=== PATIENT | female | born 1975 | race Caucasian/White ===

== ENCOUNTER → 2020-02-04 12:28 | Outpatient (CLI) | payer BC, SELFPAY | PROVIDERS: PCP Family Medicine; Visit Provider Family Medicine | DX: R00.2 Palpitations (principal) | CPT/HCPCS: 93225; 93226 ==

== ENCOUNTER → 2020-11-20 09:59 | Outpatient (CLI) | payer OTHER, SELFPAY ==
--- NOTE | 2020-11-20 10:02 | CT_ITS ---
PROCEDURE: CT ANGIO HEAD CLINICAL INDICATION: ACUTE NONINTRACTABLE HEADACHE, UNSPECIFIED HEADACHE TYPE COMPARISON: No exams were available for comparison TECHNIQUE: IV Contrast: 100ML Isovue [address] brain followed by CT angiography of the head with multiplanar, MIP, and 3D reformations. All measurements of carotid stenosis are performed according to NASCET criteria. Dose modulation, automated exposure control, and/or iterative reconstruction were used for dose reduction. FINDINGS: Anterior Circulation: Both supraclinoid ICAs bifurcate into normal anterior and middle cerebral arteries without any significant stenosis, aneurysm, or other abnormality. Anterior additional: Unremarkable appearing ophthalmic arteries Posterior circulation: The vertebrals and basilar artery have an unremarkable appearance. There is persistent origin of the right posterior cerebral artery as a normal variant. Posterior additional: The intracranial portion of the carotid arteries have an unremarkable appearance. Venous: The major intracranial venous structures enhance normally. No midline shift or mass effect. No enhancing lesions. IMPRESSION: No acute intracranial process. Dictated by: Satya Santiago MD 11/20/2020 11:32 Satya Santiago MD in [place] 11/20/2020 11:32
== END ==
PROVIDERS: PCP Family Medicine; Visit Provider Physician Assistant
DX: R51.9 Headache, unspecified (principal)
CPT/HCPCS: 70496; Q9967

== ENCOUNTER → 2020-12-09 12:42 | Outpatient (CLI) | payer OTHER, SELFPAY ==
--- NOTE | 2020-12-09 12:59 | ECG_ITS ---
APPROVED REPORT Exam: Resting ECG HR:89 bpm ECG Measurements Heart Rate 89 AXES WA 130 P 38 QRSd 80 QRS 28 QT 370 T 11 QTc 450 Conclusion Normal sinus rhythm Possible Left atrial enlargement Borderline ECG Electronically signed by : Hector Toure MD 12/09/2020 20:10:41
== END ==
PROVIDERS: PCP Family Medicine; Visit Provider Family Medicine
DX: R00.2 Palpitations (principal)
CPT/HCPCS: 93005; 93225; 93226

== ENCOUNTER → 2020-12-11 12:51 | Outpatient (CLI) | payer OTHER, SELFPAY ==
--- NOTE | 2020-12-11 | CA_ITS ---
APPROVED REPORT EXAM: Comprehensive 2D, Doppler, and color-flow Echocardiogram Flamer After Lasting: Pamela Linder CRT Ht: 5 ft 0 in Wt: 160lbs BSA: 1.70 BP: 138/78 mmHg Indications: Palpitations 2D Dimensions LVOT 1.79 cm (M/F) 1.5-2.5 LA Volume 19.40 mL LA Volume Index 11.40 mL/m2 (M/F) 16-34 M-Mode Dimensions RVDd 2.50 cm (0.9-2.6) LA Diam 3.10 cm (1.9-4.0) LVDd 4.59 cm (3.5-5.7) Ao Diam 2.94 cm (2.0-3.7) LVDs 2.94 cm (3.5-5.7) IVSd 0.91 cm (0.6-1.1) PWd 0.44 cm (0.6-1.1) EF (Teich) 65.60% FS 35.90% EDV (Teich) 96.80 mL TAPSE 1.98 (<1.7) ESV (Teich) 33.30 mL LV Diastology E Decel Time 153.00 (160-240 msec) E/A Ratio 0.84 MED E' 9.80 (< 7 cm/sec) MED A' 12.10 cm/s E'/MED E' Ratio 8.95 (>14) LAT E' 10.60 (<10 cm/sec) LAT A' 12.70 cm/s E/LAT E' Ratio 8.27 (>14) Aortic Valve AO Peak GR. 7.00 mmHg Mitral Valve MV E Max Braydon. 88.00 (40-130 cm/s) MV A Velocity 104.00 (40-130 cm/s) E/A Ratio 0.84 MV Decel. Time 153.00 (160-240 ms) MV PHT 45.00 ms Pulmonary Valve PV Peak Velocity 113.00 (50-150 cm/s) Tricuspid Valve TR P. Velocity 167.00 cm/s RAP Estimate 10.00 mmHg RVSP 21.20 mmHg Left Ventricle Left atrium normal size, left ventricle is normal size, there is no concentric left ventricular hypertrophy, visually estimated ejection fraction 55% with no regional wall motion abnormality, diastolic parameters are within normal range. Right Ventricle Right atrium and right ventricle are normal size and contractility. Aortic Valve Aortic valve is grossly normal. There is no aortic stenosis or aortic insufficiency. Mitral Valve Mitral valve grossly normal, there is trace mitral regurgitation. Tricuspid Valve Tricuspid valve grossly normal, there is trace tricuspid regurgitation, tricuspid regurgitation jet velocity is inadequate for calculation of the right ventricular systolic pressure. Pulmonic Valve Pulmonic valve is poorly visualized. Great Vessels Aortic root is normal size. Pericardium No significant pericardial effusion noted. Conclusion 1. Normal left ventricular size, preserved left ventricular systolic function, visually estimated ejection fraction 55% with no regional wall motion abnormality, diastolic parameters are within normal range. 2. Trace mitral and tricuspid regurgitation. 3. No significant pericardial effusion noted. Electronically signed by : Valente Bustos MD 12/11/2020 16:40:22
== END ==
PROVIDERS: PCP Family Medicine; Visit Provider Family Medicine
DX: R00.2 Palpitations (principal)
CPT/HCPCS: 93306

== ENCOUNTER → 2020-12-16 08:27 | Outpatient (CLI) | payer SELFPAY ==
--- NOTE | 2020-12-16 08:27 | CT_ITS ---
PROCEDURE: CT HEART W CALCIUM SCORE CLINICAL HISTORY: screening COMPARISON: CT ABDPELW CT ABD PELVIS W/ CONTRAST from 05/27/2016 TECHNIQUE: Axial images obtained with sagittal and coronal reformats. All CT scans at the facility use one or more dose reduction, viz: automated exposure control, ma/kV adjustment per patient size (including targeted exams where dose is matched to indication, i.e. head), or iterative reconstruction technique. FINDINGS: Coronary artery calcium score is 0 indicating very low cardiovascular disease risk. There are numerous faint bilateral small ground-glass opacities. There is a solid-appearing nodule in the left lower lobe at 5 mm. There are no previous chest CTs available for comparison to determine if these are old or new. Dedicated chest CT with contrast suggested for further evaluation. IMPRESSION: No identifiable calcific atherosclerotic plaque with very low cardiovascular disease risk Numerous small ground-glass opacities bilaterally and a 5 mm solid opacity in the left lower lobe. Suggest dedicated chest CT with contrast for further evaluation Dictated by: Satya Santiago MD 12/16/2020 09:28 Satya Santiago MD in [facility] 12/16/2020 09:28
== END ==
PROVIDERS: PCP Family Medicine; Visit Provider Internal Medicine Cardiovascular Disease
DX: Z13.6 Encounter for screening for cardiovascular disorders (principal)
CPT/HCPCS: 75571

== ENCOUNTER → 2021-01-20 14:05 | Outpatient (CLI) | payer OTHER, SELFPAY ==
--- NOTE | 2021-01-20 14:05 | CT_ITS ---
PROCEDURE: CT CHEST W CON CLINCAL INDICATION: lung nodules COMPARISON: CT CT HEART W CALCIUM SCORE from 12/16/2020 TECHNIQUE: IV Contrast: 75ml Isovue 370 Axial images obtained with sagittal and coronal reformats. All CT scans at the facility use one or more dose reduction, viz: automated exposure control, ma/kV adjustment per patient size (including targeted exams where dose is matched to indication, i.e. head), or iterative reconstruction technique. FINDINGS: ADDITIONAL FINDINGS: Airways are clear. There is a ground-glass opacity at the right lung apex. There is a bandlike opacity in the posterior segment right upper lobe which extends to the pleura, which could represent subsegmental atelectasis or pleural tethering of a lesion. There are numerous ground-glass opacities throughout the right upper lobe. There is a ground-glass opacity in the right lower lobe. There is a 2.4 centimeter lesion abutting the pleura in the left upper lobe. There are numerous ground-glass opacities in the left upper lobe. There are numerous ground-glass opacities in the left lower lobe there is a solid nodule in the superior segment left lower lobe measuring 4 millimeters. There is no pleural fluid. There is no mediastinal adenopathy. There is no axillary adenopathy. Visualized abdominal contents appear unremarkable except for diverticulosis of the colon.. IMPRESSION: 1. Numerous ground-glass (subsolid) opacities throughout all lobes of both lungs. 2. Pulmonary lesion measuring 2.4 cm abutting the pleura in the apicoposterior segment left upper lobe. Fleischner society guidelines (2017) recommend considering CT at 3 months, PET-CT, or tissue sampling. 3. Bandlike opacity in posterior segment right upper lobe extending to pleura, which could represent subsegmental atelectasis or pleural tethering of a lesion. Dictated by: Deanna Currie MD 01/21/2021 15:50 Deanna Currie MD in [place] 01/21/2021 15:50
== END ==
PROVIDERS: PCP Family Medicine; Visit Provider Nurse Practitioner Family
DX: R91.8 Other nonspecific abnormal finding of lung field (principal)
CPT/HCPCS: 71260; Q9967

== ENCOUNTER → 2021-02-01 13:28 | Outpatient (CLI) | payer OTHER, SELFPAY ==
[2021-02-01 15:10] LABS: Coronavirus 19, PCR Not Detected (NotDetected); Influenza A, PCR Not Detected (NotDetected); Influenza B, PCR Not Detected (NotDetected)
== END ==
PROVIDERS: PCP Family Medicine; Visit Provider Family Medicine
DX: Z20.822 Contact with and (suspected) exposure to COVID-19 (principal)
CPT/HCPCS: C9803; U0003; U0005

== ENCOUNTER → 2021-02-04 16:51 | Outpatient (CLI) | payer OTHER, SELFPAY | PROVIDERS: PCP Physician Assistant; Visit Provider Physician Assistant | DX: Z20.822 Contact with and (suspected) exposure to COVID-19 (principal) | CPT/HCPCS: C9803; U0003; U0005 ==

== ENCOUNTER → 2021-04-05 13:04 | Outpatient (CLI) | payer OTHER, SELFPAY ==
[2021-04-05 13:28] LABS: Influenza A, PCR Not Detected (NotDetected); Influenza B, PCR Not Detected (NotDetected)
[2021-04-05 13:55] LABS: Coronavirus 19, PCR Detected (NotDetected)
== END ==
PROVIDERS: PCP Family Medicine; Visit Provider Family Medicine
DX: U07.1 COVID-19 (principal)
CPT/HCPCS: C9803; U0003; U0005

== ENCOUNTER → 2022-03-09 07:59 | Outpatient (CLI) | payer OTHER, SELFPAY ==
[2022-03-10 15:10] LABS: H. pylori Breath Test Negative (Negative)
== END ==
LOC: LAB 07:59
PROVIDERS: PCP Family Medicine; Visit Provider Family Medicine
DX: R12 Heartburn (principal); K21.9 Gastro-esophageal reflux disease without esophagitis
CPT/HCPCS: 83013

== ENCOUNTER → 2022-03-15 07:54 | Outpatient (CLI) | payer OTHER, SELFPAY ==
[2022-03-15] VITALS (8 sets, daily range): BP systolic 93–145; BP diastolic 61–90; PULSE 133–137; RESP 20–22; TEMP 36.6; O2SAT 92–95; BMI 27.9
--- NOTE | 2022-03-15 08:03 | XR_ITS ---
FINAL REPORT CLINICAL HISTORY: SOB and dry cough for 2 weeks, pt states she vapes No surg FINDINGS: Two views of the chest were obtained. The heart size and pulmonary vascularity are within normal limits. The mediastinum is normal. There is total opacification of the left thorax with a probable large pleural effusion. The right lung is clear. There is no pneumothorax. The bony thorax is intact. IMPRESSION: Total opacification of the left thorax with a probable large pleural effusion. Reviewed, Interpreted and Dictated by Daquan Olivera III, MD Transcribed by Prerna Marrufo Authenticated and [facility]
--- NOTE | 2022-03-15 08:43 | CT_ITS ---
FINAL REPORT CLINICAL HISTORY: LUNG NODULE. abnormal cxr. soa cough COMPARISON: December 2020 FINDINGS: Axial images were obtained from the lung apex to the mid abdomen by computed tomography after the administration of IV contrast. Coronal reformatted images were obtained. This study was performed with techniques to keep radiation doses as low as reasonably achievable, (ALARA). Individualized dose reduction techniques using automated exposure control or adjustment of mA and/or kV according to the patient's size were employed. There is no axillary adenopathy. There is mediastinal and hilar adenopathy. A right subcarinal lymph node measures 2.5 cm. Heart size is normal. There is complete collapse of the left lung. There are heterogeneous areas within the left lung. There is a suspected left hilar/perihilar mass. There is a large left pleural effusion that fills the entire left thorax. There are areas of left pleural thickening worrisome for pleural neoplasm. There is a moderate pericardial effusion. A small right pleural effusion is present. There are several less than 5 mm nonspecific right pulmonary nodules. Images through the abdomen show numerous masses throughout the liver consistent with widespread hepatic metastatic disease. Hepatic masses measure up to approximate 1.5 cm. There are several borderline enlarged upper abdominal lymph nodes. There are multiple low-attenuation masses throughout the bony thorax consistent with bony metastatic disease. IMPRESSION: Left hilar/perihilar mass with large left pleural effusion and areas of left pleural thickening worrisome for pleural neoplasm. Widespread hepatic and bony metastatic disease. Mediastinal, hilar and upper abdominal adenopathy. The patient's physician was notified of these findings by Dr. Olivera at 9:20 a.m. on March 15, 2022. Reviewed, Interpreted and Dictated by Daquan Olivera III, MD Transcribed by Manoj Madison Authenticated and [facility]
--- NOTE | 2022-03-15 09:39 | CT_ITS ---
FINAL REPORT TECHNIQUE: Postcontrast axial images through the abdomen and pelvis were performed. This study was performed with techniques to keep radiation doses as low as reasonably achievable, (ALARA). Individualized dose reduction techniques using automated exposure control or adjustment of mA and/or kV according to the patient's size were employed. CLINICAL HISTORY: ABN CT CHEST, POSS LIVER METS COMPARISON: May 2016 FINDINGS: Abdomen: The gallbladder is present. Numerous hepatic masses are better seen on the recent chest CT. The spleen is unremarkable. The adrenals are normal. The pancreas is unremarkable. The kidneys enhance appropriately. The aorta is normal in caliber. No free fluid or adenopathy is identified. There are scattered colonic diverticula. There are borderline enlarged upper abdominal lymph nodes. Pelvis: The appendix is normal. The urinary bladder is unremarkable. There is enlarged uterus favoring fibroids. There are small presumed ovarian cysts. There is a moderate amount of retained stool. There are multiple lytic areas in the spine and pelvis consistent with bony metastatic disease. There is a sclerotic focus in the medial right iliac bone favoring a bone island. IMPRESSION: Multiple lytic areas in the spine and pelvis consistent with bony metastatic disease. Hepatic masses are better seen on the recent chest CT. Enlarged uterus favors a fibroid uterus. Reviewed, Interpreted and Dictated by Daquan Olivera III, MD Transcribed by Manoj Madison Authenticated and [facility]
--- NOTE | 2022-03-15 11:15 | US_ITS ---
FINAL REPORT CLINICAL HISTORY: SOB, LT lung mass, Collasped lung [address] Cuevas FINDINGS: ULTRASOUND-GUIDED THORACENTESIS HISTORY: Pleural effusion. TECHNIQUE: Ultrasound guidance was provided for clinical service and performance of a thoracentesis. 1.6 L of fluid was removed by the clinical service. IMPRESSION: Ultrasound guidance for thoracentesis. Films reviewed , interpreted and dictated by Dr. Olivera Transcribed by Jhonatan Gamez PA-C. Reviewed, Interpreted and Dictated by Daquan Olivera III, MD Transcribed by SAMMY Richard Authenticated and [facility]
[2022-03-15 11:54] LABS: POC Glucose,Bedside 144 (70-110)
--- NOTE | 2022-03-15 12:24 | XR_ITS ---
FINAL REPORT CLINICAL HISTORY: POST THORACENTESIS COMPARISON: Earlier same day FINDINGS: A single view of the chest was obtained. The heart is normal in size. The mediastinum is unremarkable. There is a moderate, partially improved left pleural effusion. Left lung opacities persist. There is no pneumothorax. IMPRESSION: Partial improvement in left pleural effusion with no pneumothorax post thoracentesis. Reviewed, Interpreted and Dictated by Daquan Olivera III, MD Transcribed by Lyndsay Osorio Authenticated and . [facility]
--- NOTE | 2022-03-15 12:40 | PC.NURSE ---
Pt arrived to post-op for 1 hour observation after thoracentiesis. Bandaid L mid-back showing faint shadow of drainage in center. No C/O pain. No SOA. Saturation 92%. Frequent dry cough noted. Lung sounds diminished on L side, expiratory wheezes RUL. Skin P/W/D at this time. Spouse at bedside offering appropriate support. Pt calm and cooperative.
--- NOTE | 2022-03-15 12:54 | PC.NURSE ---
Pt continues to be stable without pain or SOA. Eating lunch without difficulty. Radiology at bedside around 1235 for port CXR.
--- NOTE | 2022-03-15 13:13 | PC.NURSE ---
RT at bedside to administer duoneb.
--- NOTE | 2022-03-15 13:15 | HMH.PROCNOTE ---
[facility] Procedure Note Date: 03/15/22 Time: 12:35 Procedure Note:: Procedure: Left Thoracentesis Indication for procedure: Pleural Effusion, Hypoxic Respiratory failure A time out was performed, and the CT chest was reviewed, the appropriate side was confirmed and marked. My hands were washed immediately prior to the procedure. I wore a surgical cap, mask with protective eyewear, sterile gown, and sterile gloves throughout the procedure. The patient was prepped and draped in a sterile manner using chlorhexidine scrub after the appropriate level was percussed and confirmed by ultrasound. 1% lidocaine was used to anesthetize the skin, ?subcutaneous tissue, superior aspect of the rib periosteum and parietal pleura.? A finder needle was then introduced at the seventh intercoastal space posteriorly?to locate the pleural fluid; blood-tinged fluid was aspirated. A 10-blade scalpel was used to cristi the skin at the insertion site. The Aaln-w-Ixfwsega needle was then introduced through the skin incision into the pleural space using negative aspiration pressure and the red colorimetric indicator to confirm appropriate positioning of the needle. The thoracentesis catheter was then threaded without difficulty.? 1620 ml of blood tinged-colored?fluid was removed without difficulty. The catheter was then removed. No immediate complications were noted during the procedure. A post-procedure chest X-ray is pending at the time of this note. The fluid will be sent for routine pleural studies, cultures along with cytopathology.? Patient tolerated the procedure well? Estimated blood loss is 5cc.
--- NOTE | 2022-03-15 13:28 | PC.NURSE ---
Pt denies pain or SOA. Lasix 40 mg po given per order. MD wanted to see pt in office before leaving [facility]. W/C pt to [facility]. VSS. Dr. Em aware of all VS.
--- NOTE | 2022-03-15 13:30 | PC.NURSE ---
Education to pt and S.O. to return to ER for SOA and/severe pain in chest, bleeding from punture site. S/S infection discussed. Verbalized understanding of all.
[2022-03-15 13:36] LABS: Appearance,Body Fld. Cloudy; RBC,Body Fluid 16 cells/uL (< 10 X 10^3); Source, Body Fld. Thoracentesis Fluid; TNC,Body Fluid 1775 cells/uL (< 1000); Volume,Body Fld. 1620 mL
--- NOTE | 2022-03-15 13:43 | PC.NURSE ---
Discussed with pt and S.O. to return to ER if develop bleeding at puncture site, severe pain and/or SOA. S/S infection reviewed. Verbalized understanding of all info.
[2022-03-15 14:08] LABS: Mononuclear WBCs,Body Fluid 93 %; Polynuclear WBC,Body Fluid 7 %
[2022-03-16 12:22] LABS: Albumin, Body Fluid 3.2 g/dL (Not Estab.); Glucose, Body Fluid 159 mg/dL (.); LD, Body Fluid 153 IU/L (.); Protein, Body Fluid 4.6 g/dL (.)
== END ==
PROVIDERS: Internal Medicine Pulmonary Disease; PCP Family Medicine; Visit Provider Family Medicine
DX: R06.02 Shortness of breath (principal); C78.7 Secondary malignant neoplasm of liver and intrahepatic bile duct; R91.1 Solitary pulmonary nodule
CPT/HCPCS: 32555; 71045; 71046; 71260; 74177; 82042; 82945; 82962; 83615; 83986; 84155; 87070; 87205; 89051; Q9967

== ENCOUNTER → 2022-03-18 16:51 | Outpatient (CLI) | payer OTHER, SELFPAY ==
--- NOTE | 2022-03-18 16:53 | MR_ITS ---
PROCEDURE INFORMATION: Exam: MR Head Without and With Contrast Exam date and time: 03/18/2022 5:19 PM Age: 46 years old Clinical indication: Condition or disease; Metastatic or secondary malignancy of brain; Patient HX: Dx with lung cancer Tuesday03/15/22, checking for mets in the brain , PT has mild headaches and blurred vision . ; additional info: Widespread metastatic malignant neoplastic dis. TECHNIQUE: Imaging protocol: Magnetic resonance imaging of the head without and with contrast. Contrast material: PROHANCE; Contrast volume: 14 ml; Contrast route: IV; COMPARISON: CT ANGIO HEAD 11/20/2020 10:28 AM FINDINGS: Brain: There are innumerable enhancing, intra-axial lesions. No acute territorial infarct or parenchymal hemorrhage. Cerebral ventricles: The ventricles, sulci and cisterns are normal in size and configuration. No hydrocephalus or midline structure shift Pituitary gland and sella: Orbits, sellar/parasellar structures and cervicomedullary junction are unremarkable. Bones/joints: Unremarkable. Paranasal sinuses: Normal as visualized. No acute sinusitis. Mastoid air cells: Normal as visualized. No mastoid effusion. Orbital cavities: Unremarkable. Vasculature: Flow voids of the major vascular structures are intact. Soft tissues: Unremarkable. IMPRESSION: Innumerable intra-axial metastasis in this patient with history of lung cancer.
== END ==
LOC: RAD 16:51
PROVIDERS: PCP Family Medicine; Visit Provider Family Medicine
DX: C34.92 Malignant neoplasm of unspecified part of left bronchus or lung (principal); C80.0 Disseminated malignant neoplasm, unspecified
CPT/HCPCS: 70553; A9576

== ENCOUNTER 2022-03-24 16:48 | Inpatient (IN) | payer OTHER, SELFPAY ==
[2022-03-24] VITALS (19 sets, daily range): BP systolic 107–148; BP diastolic 67–99; PULSE 90–120; RESP 16–22; TEMP 36.1–37.1; O2SAT 90–98; BMI 23.4
--- NOTE | 2022-03-24 10:21 | XR_ITS ---
FINAL REPORT CLINICAL HISTORY: F/U PLEURAL EFFUSION COMPARISON: March 15, 2022 FINDINGS: Two views of the chest were obtained. The heart size and pulmonary vascularity are within normal limits. The mediastinum is normal. There is a large left pleural effusion, worse. There are mild right base pulmonary opacities, favor atelectasis over pneumonia. There is no pneumothorax. The bony thorax is intact. IMPRESSION: Worsening large left pleural effusion. Mild right lung base opacities, favor atelectasis over pneumonia. Reviewed, Interpreted and Dictated by Daquan Olivera III, MD Transcribed by Prerna Marrufo Authenticated and . [facility]
--- NOTE | 2022-03-24 12:03 | US_ITS ---
FINAL REPORT CLINICAL HISTORY: malignant effusion, DR ALVAREZ, 2390ML FINDINGS: ULTRASOUND-GUIDED THORACENTESIS HISTORY: Pleural effusion. TECHNIQUE: Ultrasound guidance was provided by clinical service and performance of a thoracentesis. IMPRESSION: Ultrasound guidance for thoracentesis performed by clinical service. Films reviewed , interpreted and dictated by Dr. Olivera Transcribed by Jhonatan Gamez PA-C. Reviewed, Interpreted and Dictated by Daquan Olivera III, MD Transcribed by SAMMY Richard Authenticated and [facility]
--- NOTE | 2022-03-24 13:24 | XR_ITS ---
FINAL REPORT CLINICAL HISTORY: .POST LT THORACENTESIS PER DR ALVAREZ COMPARISON: 03/24/2022 FINDINGS: SINGLE-VIEW CHEST The heart size is normal. The mediastinum is normal. There is marked improvement in the left pleural effusion. There is a moderate left pneumothorax with up to 20 mm of pleural separation. IMPRESSION: Moderate left pneumothorax. Ordering physician's office was notified of findings on 03/24/2022 at 1:54 p.m. Reviewed, Interpreted and Dictated by Daquan Olivera III, MD Transcribed by Janey Cuba Authenticated and [facility]
--- NOTE | 2022-03-24 14:11 | PC.NURSE ---
dr. umana at bedside talking to patient
--- NOTE | 2022-03-24 14:58 | PC.NURSE ---
patient sitting in chair, expresses no need. family at bedside. pt is aware of care plan.
--- NOTE | 2022-03-24 16:19 | XR_ITS ---
FINAL REPORT CLINICAL HISTORY: chest tube placement COMPARISON: Earlier the same day FINDINGS: A single portable view of the chest was obtained. A new left chest tube is present. There is cardiomegaly. The mediastinum is within normal limits. There is a moderate left pneumothorax which is larger with approximately 27 mm of pleural separation. There is a small left pleural effusion. The bony thorax is intact. IMPRESSION: New left chest tube is present. Moderate but larger left pneumothorax with approximately 27 mm of pleural separation. Small left pleural effusion. Reviewed, Interpreted and Dictated by Daquan Olivera III, MD Transcribed by Prerna Marrufo Authenticated and . [facility]
--- NOTE | 2022-03-24 16:20 | EXP.SURG.CON ---
History of Present Illness *Admission Date: 03/24/22 *Reason for visit:: effusion / ptx *History of present illness: 46yo F with malignant left pleural effusion. PTX noted after thoracentesis earlier today. [facility] Disclaimer: The information contained in this section may have been updated after the patient was seen, as this information can be updated by other users. Medical History (Updated 03/24/22 @ 17:15 by Ashley Deutsch, RN) Abnormal electrocardiography Anxiety Anxiety and depression Blurry vision, bilateral Bone metastases Bone metastases Brain metastases Chronic cough Chronic cough Depression Diabetes Diabetes mellitus, type 2 Family history of heart disease GERD (gastroesophageal reflux disease) Hilar lymphadenopathy History of COVID-19 History of COVID-19 History of diverticulitis History of diverticulitis History of gastroesophageal reflux (GERD) Hyperlipidemia Liver metastases Lung cancer Malignant pleural effusion Mediastinal lymphadenopathy Migraine Palpitations Pleural effusion Primary adenocarcinoma of lung Sinus tachycardia SOB (shortness of breath) Surgical History History of thoracentesis No significant past surgical history Family History Mother Lung cancer Other Diabetes Social History (Updated 03/24/22 @ 17:17 by Ashley Deutsch, RN) Smoking Status: Former smoker alcohol intake: never substance use type: denies use current occupational status: employed Travel in the last 8 weeks: None Meds Home Medications and Allergies Home Medications Medication Instructions Recorded Confirmed Type empagliflozin 10 mg tablet 10 mg PO DAILY Diabetes 03/15/22 03/24/22 History (Jardiance) dexamethasone 4 mg tablet 2 mg PO BID steroid 03/24/22 03/24/22 History New Prescriptions to Start Prescriptions: Allergies Allergy/AdvReac Type Severity Reaction Status Date / Time No Known Allergies Allergy Verified 03/15/22 13:58 Exam (Inpt) Vital signs and Labs for Last 24 Hours: Temp Pulse Resp BP Pulse Ox 98.8 F 109 H 17 126/86 97 03/24/22 20:00 03/24/22 20:00 03/24/22 20:00 03/24/22 20:00 03/24/22 20:00 Laboratory Results - last 24 hr 03/24/22 17:26: SARS-CoV-2 (PCR) Not detected, Influenza A Untype (PCR) Not detected, Influenza Type B (PCR) Not detected I & O for Labs for Last 24 Hours: Intake & Output 03/22/22 03/23/22 03/24/22 03/25/22 11:59 11:59 11:59 11:59 Intake Total 240 / 240 Output Total 500 / 500 Balance -260 / -260 Weight 120 lb Constitutional: no acute distress Respiratory: Absent respiratory distress Results Labs Labs: Laboratory Results - last 24 hr 03/24/22 17:26: SARS-CoV-2 (PCR) Not detected, Influenza A Untype (PCR) Not detected, Influenza Type B (PCR) Not detected Imaging Chest x-ray: image reviewed Assessment and Plan *Assessment and plan (1) Pneumothorax on left: Status: Acute Category: Medical Code(s): J93.9 - Pneumothorax, unspecified Plan: left chest tube I have discussed the risks and benefits including, but not limited to: Bleeding Infection Damage to surrounding tissue Inherent risks of sedation The patient agrees to proceed.
--- NOTE | 2022-03-24 16:27 | PC.NURSE ---
consent for left chest tube placement signed by patient, dr. jones, and nurse. time out called at 1551 with staff at bedside. pt tolerated procedure well. procedure ended at 1617. nicky vernon put in chest xray order per dr jones.
--- NOTE | 2022-03-24 16:58 | EXP.ACUTE.PN ---
Subjective *Date: 03/24/22 *Time: 16:58 Interval history: Patient had pneumothorax after thoracentesis today, due to malignant, symptomatic pleural effusion. Chest tube placed by Dr. Christianson. Medical Exam Vital signs and Labs for Last 24 Hours: Vital Signs Temp Pulse Resp BP Pulse Ox 03/24/22 15:15 107 H 21 118/90 95 03/24/22 15:00 109 H 19 114/87 96 03/24/22 14:30 109 H 20 116/88 96 03/24/22 14:15 109 H 20 122/81 96 03/24/22 14:05 111 H 21 120/84 95 03/24/22 13:50 110 H 17 148/70 H 96 03/24/22 13:35 111 H 20 131/74 95 03/24/22 13:20 112 H 20 120/92 H 93 L 03/24/22 13:05 97.0 F L 107 H 20 124/95 H 91 L 03/24/22 11:41 98.3 F 90 22 125/88 90 L Intake and Output 03/24/22 03/24/22 03/24/22 07:59 15:59 23:59 Other: Weight 120 lb Patient Weight 03/24/22 23:59 Weight 120 lb I & O for Labs for Last 24 Hours: Intake & Output 03/21/22 03/22/22 03/23/22 03/24/22 23:59 23:59 23:59 23:59 Weight 120 lb Constitutional: Present no acute distress Comment:: uncomfortable due to pain, left sided chest tube in place. Assessment and Plan *Assessment and plan (1) Pneumothorax on left: Status: Acute Category: Medical Code(s): J93.9 - Pneumothorax, unspecified (2) Malignant pleural effusion: Status: Acute Category: Medical Code(s): J91.0 - Malignant pleural effusion (3) Primary adenocarcinoma of lung: Status: Acute Category: Medical Code(s): C34.90 - Malignant neoplasm of unspecified part of unspecified bronchus or lung (4) Brain metastases: Status: Acute Category: Medical Code(s): C79.31 - Secondary malignant neoplasm of brain (5) Bone metastases: Status: Acute Category: Medical Code(s): C79.51 - Secondary malignant neoplasm of bone (6) Chronic cough: Status: Acute Category: Medical Code(s): R05.3 - Chronic cough (7) Liver metastases: Status: Acute Category: Medical Code(s): C78.7 - Secondary malignant neoplasm of liver and intrahepatic bile duct (8) Mediastinal lymphadenopathy: Status: Acute Category: Medical Code(s): R59.0 - Localized enlarged lymph nodes Plan Patient admitted for further management of left sided pneumothorax.
--- NOTE | 2022-03-24 17:06 | EXP.PULM.CON ---
History of Present Illness History of present illness: Ms. Schroeder is a 46-year-old female no significant smoking history recently diagnosed with stage IV adenocarcinoma lung presented to the hospital for outpatient thoracentesis procedure experience iatrogenicpneumothorax status post surgical chest tube placement and was admitted for further management [facility] Disclaimer: The information contained in this section may have been updated after the patient was seen, as this information can be updated by other users. Medical History (Updated 03/24/22 @ 17:15 by Ashley Deutsch RN) Abnormal electrocardiography Anxiety Anxiety and depression Blurry vision, bilateral Bone metastases Bone metastases Brain metastases Chronic cough Chronic cough Depression Diabetes Diabetes mellitus, type 2 Family history of heart disease GERD (gastroesophageal reflux disease) Hilar lymphadenopathy History of COVID-19 History of COVID-19 History of diverticulitis History of diverticulitis History of gastroesophageal reflux (GERD) Hyperlipidemia Liver metastases Lung cancer Malignant pleural effusion Mediastinal lymphadenopathy Migraine Palpitations Pleural effusion Primary adenocarcinoma of lung Sinus tachycardia SOB (shortness of breath) Surgical History (Updated 03/15/22 @ 13:51 by Chey Irene) History of thoracentesis No significant past surgical history Family History Mother Lung cancer Other Diabetes Social History Smoking Status: Former smoker alcohol intake: never substance use type: denies use current occupational status: employed Travel in the last 8 weeks: None Review of Systems Constitutional Constitutional: Denies anorexia, Denies body ache(s) and Reports fatigue Eyes Eyes: Denies eye discharge, Denies dry eyes, Denies irritation and Denies itchy eyes ENT Ears, Nose, Mouth, and Throat: Denies epistaxis, Denies facial pain, Denies lip swelling and Denies throat swelling *Cardiovascular Cardiovascular: Denies dyspnea and Denies dyspnea on exertion *Respiratory Respiratory: Reports chest congestion, Reports cough, Denies dyspnea, Denies dyspnea on exertion, Denies excessive phlegm production and Denies wheezing *Gastrointestinal Gastrointestinal: Denies abdominal pain, Denies belching and Denies cramping *Musculoskeletal Musculoskeletal: Reports back pain, Denies myalgias and Reports other (No small joint swelling or Pain) Psychiatric Psychiatric: Denies homicidal ideation and Denies suicidal ideation Endocrine Endocrine: Reports fatigue and Denies heat intolerance Hematologic/Lymphatic Hematologic/Lymphatic: Denies easy bleeding and Denies lymphadenopathy Allergic/Immunologic Allergic/Immunologic: Denies itchy eyes, Denies lip swelling, Denies throat swelling and Denies wheezing Pulmonology Exam Inpatient Vital signs and Labs for Last 24 Hours: Temp Pulse Resp BP Pulse Ox 97.0 F L 107 H 21 118/90 95 03/24/22 13:05 03/24/22 15:15 03/24/22 15:15 03/24/22 15:15 03/24/22 15:15 I & O for Labs for Last 24 Hours: Intake & Output 03/21/22 03/22/22 03/23/22 03/24/22 23:59 23:59 23:59 23:59 Weight 120 lb Constitutional: Present mild distress Head: Present normocephalic and atraumatic ENT: Present normal exam, normal oropharynx and mucous membranes moist Neck: Present normal inspection and full ROM Respiratory: Present decreased breath sounds, respiratory distress and able to speak in complete sentences; Absent wheezes, crackles or diminished air movement Comment:: Decreased breath sounds left lower lung garcia Cardiac: Present S1/S2, Tachycardia and radial pulses present GI: Present soft and distention; Absent tenderness or guarding Rectal (female): Present deferred (female): Present deferred Skin: Present intact; Absent cyanosis or jaundice Neuro: Present alert, awake and oriented x 3 Extremiti
[2022-03-24 17:30] LABS: Coronavirus 19, PCR Not Detected (NotDetected); Influenza A, PCR Not Detected (NotDetected); Influenza B, PCR Not Detected (NotDetected)
--- NOTE | 2022-03-24 17:57 | PC.NURSE ---
patient arrived by stretcher from surgery
[2022-03-25] VITALS (15 sets, daily range): BP systolic 109–136; BP diastolic 80–90; PULSE 107–120; RESP 16–22; TEMP 36.4–37.1; O2SAT 94–97; BMI 28.3
--- NOTE | 2022-03-25 | CA_ITS ---
APPROVED REPORT EXAM: Comprehensive 2D, Doppler, and color-flow Echocardiogram Reproductive Surgeon: Halima Xavier RT(R) Ht: 5 ft 0 in Wt: 140lbs BSA: 1.60 BP: 143/84 mmHg Indications: Pericardiocentesis for pericardial effusion seen on CTA of chest, lung cancer with mets to brain, liver, and spine. Conclusion 1. Limited echocardiogram was obtained for pericardial effusion and pericardiocentesis follow-up. 2. The initial echocardiogram shows large sized pericardial effusion with right ventricular diastolic collapse, subsequently patient underwent pericardiocentesis with removal of some fluid. At the end of the procedure the right ventricular diastolic collapse was not seen, however there is still large anterior pericardial effusion persisted. 3. Normal left ventricular systolic function. Electronically signed by : Valente Bustos MD 03/26/2022 16:12:36
--- NOTE | 2022-03-25 02:58 | PC.NURSE ---
Pt resting in bed at this time with Boyfriend at bedside. Pt wearing non rebreather at 15L 02, Lung sound on right side Rhonchi throughout. Resp are shallow at times. Pt has had Morphine 2 times this shift, a total of 4mg. Reports she didn't think she could swallow the pills well. States she did get up to bedside toilet 2 times to urinate and one Bowel movement. Chest tube is patent with Serosanguineous drainage. on low wall suction. Pt reports the pain is ok until repositioning, then rates pain higher. Pt has been educated on current medication regimen, encouraged to notify staff of Shortness of air or pain. IV is patent, bed locked in low position, side rails up x 2, call light in reach.
--- NOTE | 2022-03-25 06:00 | XR_ITS ---
PROCEDURE INFORMATION: Exam: XR Chest Exam date and time: 03/25/2022 5:04 AM Age: 46 years old Clinical indication: Condition or disease; Lung condition and disease; Pneumothorax; Patient HX: Chest tube left side TECHNIQUE: Imaging protocol: Radiologic exam of the chest. Views: 1 view. COMPARISON: CR XR CHEST PORTABLE 03/24/2022 4:19 PM FINDINGS: Tubes, catheters and devices: There is interval marked improvement in the previously identified left-sided pneumothorax with left-sided chest tube in stable position. Lungs: There is interval development of diffuse airspace disease/consolidation throughout the left hemithorax. Mild right basilar airspace disease versus atelectasis. Pleural spaces: Left-sided pleural effusion. Heart/Mediastinum: Cardiomegaly. Bones/joints: No acute findings. IMPRESSION: 1. Interval near complete resolution of the left-sided pneumothorax with development of diffuse airspace disease consolidation throughout the left hemithorax. 2. Left pleural effusion. 3. Mild right basilar airspace disease versus atelectasis. 4. Cardiomegaly.
--- NOTE | 2022-03-25 06:53 | EXP.SURG.PN ---
Subjective Patient reports: no new complaints Exam Data for Last 24 hours Vital signs and Labs for Last 24 Hours: Temp Pulse Resp BP Pulse Ox 97.6 F 110 H 16 119/90 96 03/25/22 04:00 03/25/22 04:00 03/25/22 04:00 03/25/22 04:00 03/25/22 04:00 Laboratory Results - last 24 hr 03/24/22 17:26: SARS-CoV-2 (PCR) Not detected, Influenza A Untype (PCR) Not detected, Influenza Type B (PCR) Not detected I & O for Last 24 hours: Intake & Output 03/22/22 03/23/22 03/24/22 03/25/22 11:59 11:59 11:59 11:59 Intake Total 360 / 360 Output Total 500 / 500 Balance -140 / -140 Weight 144 lb 5 oz Constitutional Constitutional: no acute distress *Routine Respiratory Exam Comments: Minimal air leak with Pleur-evac pressure adjustments/cough Progress Note: A&P Assessment and plan (1) Pneumothorax on left: Status: Acute Assessment and plan: Minimal air leak with Pleur-evac pressure adjustments/cough f/u AM films continue chest tube to suction for now overall management as per primary service/pulmonology
[2022-03-25 08:14] LABS: Basophils # 0.1 K/mm3 (0-0.2); Basophils % 0.3 % (0.1-2.0); Eosinophils # 0.7 K/mm3 (0.0-0.4); Eosinophils % 3.3 % (0.1-12.0); Hematocrit 45.8 % (37.0-47.0); Hemoglobin 14.5 g/dL (12.2-16.2); Lymphocytes # 1.7 K/mm3 (0.7-4.5); Lymphocytes % 7.8 % (10-50); Mean Corpuscular HGB Conc 31.6 g/dL (31.8-35.4); Mean Corpuscular Hemoglobin 28.2 pg (27.0-31.2); Mean Platelet Volume 8.9 fl (7.4-10.4); Monocytes # 1.4 K/mm3 (0.1-1.0); Monocytes % 6.5 % (1.7-9.3); Neutrophils # 17.9 K/mm3 (1.8-7.8); Platelet Count 325 K/mm3 (142-424); Red Blood Count 5.14 M/mm3 (4.20-5.40); Red Cell Distribution Width 15.5 % (11.5-17.5); White Blood Count 21.8 K/mm3 (4.8-10.8)
[2022-03-25 08:17] LABS: MANUAL DIFFERENTIAL MANUAL DIFFERENTIAL (MANUAL DIFF)
--- NOTE | 2022-03-25 08:30 | EXP.HP ---
History of Present Illness *Admission Date: 03/24/22 *Reason for visit:: shortness of breath *History of present illness: Ms. West is a 46-year-old female with a newly diagnosed pulmonary adenocarcinoma which has metastasized to the brain, liver, and spine. She underwent a left thoracentesis on 03/15/2022 with removal of 1620 mL of blood-tinged fluid. She began having shortness of breath again on 03/24/2022 and chest x-ray showed reaccumulation of fluid. She had another thoracentesis with 2390 mL of blood-tinged fluid removed. After the procedure, she experienced a pneumothorax and was admitted and a chest tube was placed. [facility] Disclaimer: The information contained in this section may have been updated after the patient was seen, as this information can be updated by other users. Medical History (Updated 03/25/22 @ 08:44 by Yuniel Leonardo MD) Abnormal electrocardiography Anxiety and depression Blurry vision, bilateral Bone metastases Brain metastases Chronic cough Diabetes mellitus, type 2 Family history of heart disease GERD (gastroesophageal reflux disease) Hilar lymphadenopathy History of COVID-19 History of diverticulitis History of gastroesophageal reflux (GERD) Hyperlipidemia Liver metastases Lung cancer Malignant pleural effusion Mediastinal lymphadenopathy Migraine Palpitations Pleural effusion Primary adenocarcinoma of lung Sinus tachycardia SOB (shortness of breath) Surgical History (Updated 03/25/22 @ 08:35 by SAMMY Castellon) History of thoracentesis Family History Diabetes Lung cancer Mother Social History Smoking Status: Former smoker alcohol intake: never substance use type: denies use current occupational status: employed Travel in the last 8 weeks: None Review of Systems Constitutional Constitutional: Reports fatigue, Reports headache(s), Reports malaise and Reports weakness Eyes Eyes: Reports change in vision ENT Ears, Nose, Mouth, and Throat: Reports headache(s), Denies nasal congestion, Denies sore throat and Reports vertigo *Cardiovascular Cardiovascular: Reports chest pain and Reports dyspnea *Respiratory Respiratory: Reports cough, Reports dyspnea and Reports pain with cough *Gastrointestinal Gastrointestinal: Denies abdominal pain, Denies loose stools, Denies nausea and Denies vomiting *Genitourinary Genitourinary: Denies difficulty voiding and Denies dysuria *Musculoskeletal Musculoskeletal: Reports muscle weakness and Denies myalgias *Neurologic Neurologic: Reports headache(s), Reports vertigo and Reports weakness Endocrine Endocrine: Reports fatigue Meds Home Medications and Allergies Home Medications Medication Instructions Recorded Confirmed Type empagliflozin 10 mg tablet 10 mg PO DAILY Diabetes 03/15/22 03/24/22 History (Jardiance) dexamethasone 4 mg tablet 2 mg PO BID steroid 03/24/22 03/24/22 History New Prescriptions to Start Prescriptions: Allergies Allergy/AdvReac Type Severity Reaction Status Date / Time No Known Allergies Allergy Verified 03/15/22 13:58 Exam Data for Last 24 hours Vital signs and Labs for Last 24 Hours: Temp Pulse Resp BP Pulse Ox 97.5 F L 113 H 18 109/83 L 96 03/25/22 07:47 03/25/22 07:47 03/25/22 07:47 03/25/22 07:47 03/25/22 07:47 Laboratory Results - last 24 hr 03/24/22 17:26: SARS-CoV-2 (PCR) Not detected, Influenza A Untype (PCR) Not detected, Influenza Type B (PCR) Not detected 03/25/22 07:25: WBC 21.8 H*, RBC 5.14, Hgb 14.5, Hct 45.8, MCV 89.0, MCH 28.2, MCHC 31.6 L, RDW 15.5, Plt Count 325, MPV 8.9, Neut % (Auto) 82.0 H, Lymph % (Auto) 7.8 L, Daniels % (Auto) 6.5, Eos % (Auto) 3.3, Baso % (Auto) 0.3, Neut # (Auto) 17.9 H, Lymph # (Auto) 1.7, Daniels # (Auto) 1.4 H, Eos # (Auto) 0.7 H, Baso # (Auto) 0.1 I & O for Last 24 hours: Intake & Output 03/22/22 03/23/22
[2022-03-25 08:43] LABS: Eosinophils % 4 % (0-3); Lymphocytes % 5 % (10-50); Monocytes % 4 % (2-9); Neutrophils % 87 % (42-76); Platelet Estimate Normal; RBC Morphology Normal; Total Cells Counted 100
[2022-03-25 08:47] LABS: Chloride 96 mmol/L (98-107); Sodium 130 mmol/L (136-145)
[2022-03-25 08:48] LABS: Potassium 5.9 mmoL/L (3.5-5.1)
--- NOTE | 2022-03-25 08:48 | HMH.PHAINT1 ---
Pharmacy Intervention Comments: MEDICATION RECONCILIATION COMPLETED ON PATIENT VIA EXTERNAL FILL HISTORY AND PATIENT INTERVIEW.
[2022-03-25 08:50] LABS: Blood Urea Nitrogen 17 mg/dl (7-17); Creatinine Clearance Estimated 245 mL/min (50-200); Estimated Glomerular Filt Rate 241 ml/min (>60); GFR (African American) 291 ML/MIN (>60)
[2022-03-25 08:51] LABS: Anion Gap 17.9 mEq/L (5-15); Calcium 8.4 mg/dl (8.4-10.2); Carbon Dioxide 22 mmol/L (22.0-30.0); Glucose 340 mg/dl (74-100)
--- NOTE | 2022-03-25 11:34 | EXP.PULM.PN ---
Subjective *Date: 03/25/22 *Time: 11:34 Interval history: No acute respiratory events overnight. Patient continued to complain of respiratory distress. Pulmonology Exam Inpatient Vital signs and Labs for Last 24 Hours: Temp Pulse Resp BP Pulse Ox 97.5 F L 113 H 18 109/83 L 96 03/25/22 07:47 03/25/22 07:47 03/25/22 07:47 03/25/22 07:47 03/25/22 07:47 Laboratory Results - last 24 hr 03/24/22 17:26: SARS-CoV-2 (PCR) Not detected, Influenza A Untype (PCR) Not detected, Influenza Type B (PCR) Not detected 03/25/22 07:25: WBC 21.8 H*, RBC 5.14, Hgb 14.5, Hct 45.8, MCV 89.0, MCH 28.2, MCHC 31.6 L, RDW 15.5, Plt Count 325, MPV 8.9, Neut % (Auto) 82.0 H, Lymph % (Auto) 7.8 L, Stafford % (Auto) 6.5, Eos % (Auto) 3.3, Baso % (Auto) 0.3, Neut # (Auto) 17.9 H, Lymph # (Auto) 1.7, Stafford # (Auto) 1.4 H, Eos # (Auto) 0.7 H, Baso # (Auto) 0.1, Total Counted 100, Neutrophils % (Manual) 87 H, Lymphocytes % (Manual) 5 L, Monocytes % (Manual) 4, Eosinophils % (Manual) 4 H, Platelet Estimate Normal, RBC Morphology Normal 03/25/22 07:25: Sodium 130 L, Potassium 5.9 H, Chloride 96 L, Carbon Dioxide 22, Anion Gap 17.9 H, BUN 17, Creatinine 0.30 L, Estimated Creat Clear 245, Estimated GFR 241, Est GFR ( Amer) 291, Glucose 340 H, Calcium 8.4 I & O for Labs for Last 24 Hours: Intake & Output 03/22/22 03/23/22 03/24/22 03/25/22 23:59 23:59 23:59 23:59 Intake Total 240 / 240 360 / 360 Output Total 500 / 500 200 / 200 Balance -260 / -260 160 / 160 Weight 120 lb 144 lb 5 oz Constitutional: Present mild distress Head: Present normocephalic and atraumatic ENT: Present normal exam, normal oropharynx and mucous membranes moist Neck: Present normal inspection and full ROM Respiratory: Present decreased breath sounds, respiratory distress and able to speak in complete sentences; Absent wheezes, crackles or diminished air movement Comment:: Decreased breath sounds left lower lung garcia Cardiac: Present S1/S2, Tachycardia and radial pulses present GI: Present soft and distention; Absent tenderness or guarding Rectal (female): Present deferred (female): Present deferred Skin: Present intact; Absent cyanosis or jaundice Neuro: Present alert, awake and oriented x 3 Extremities: Present normal inspection; Absent clubbing or cyanosis Psychiatric: Present normal affect and cooperative Assessment and Plan *Assessment and plan (1) Pneumothorax on left: Status: Acute Category: Medical Code(s): J93.9 - Pneumothorax, unspecified (2) Malignant pleural effusion: Status: Acute Category: Medical Code(s): J91.0 - Malignant pleural effusion Plan #Malignant left pleural effusion: #Iatrogenic pneumothorax: #Pneumonia Recent diagnosis of stage IV adenocarcinoma lung with malignant pleural effusion. Presented for outpatient thoracentesis experienced iatrogenic pneumothorax needing surgical chest tube placement appreciate surgery help. Status post chest tube placement complete resolution of pneumothorax however post chest x-ray chest tube x-ray continued to show confusion along with productive highly concerning for endobronchial lesion. Patient also noted to have leukocytosis. Patient also noted to be hypoxic this morning with saturations 88% on room air. Decreased breath sounds left hemithorax. Lower extremity swelling improved from yesterday. Plan: -Initiated Zosyn IV TID for pneumonia, follow sputum cultures -Follow with CT PE protocol -Continue oxygen supplementation to maintain O2 saturation goal of 100% -DuoNebs every 6 hours on as-needed basis -Percocet every 6 hours for pain managemen Thankvcyou for involving pulmonary in this patient care. We will continue to follow.
--- NOTE | 2022-03-25 11:38 | CT_ITS ---
PROCEDURE INFORMATION: Exam: CTA Chest With Contrast Exam date and time: 03/25/2022 4:52 PM Age: 46 years old Clinical indication: Other: Hypoxia; Additional info: Hypoxia, HX of cancer. TECHNIQUE: Imaging protocol: Computed tomographic angiography of the chest with contrast. 3D rendering (Not supervised by radiologist): MIP and/or 3D reconstructed images were created by the technologist. Radiation optimization: All CT scans at this facility use at least one of these dose optimization techniques: automated exposure control; mA and/or kV adjustment per patient size (includes targeted exams where dose is matched to clinical indication); or iterative reconstruction. Contrast material: ISOVUE 370; Contrast volume: 70 ml; Contrast route: INTRAVENOUS (IV); COMPARISON: CT CHEST W CON 03/15/2022 8:55 AM FINDINGS: Tubes, catheters and devices: Left chest tube is in place, tip extending toward the apex posteriorly. There is a small 10% pneumothorax currently. Pulmonary arteries: No pulmonary embolus. No dissection or aneurysm in the chest. Aorta: Unremarkable. No aortic aneurysm. No aortic dissection. Lungs: There is now limited aeration of the left lower lobe and lingula. There are persistent areas of dense consolidation here, as well as persistent collapse of the left upper lobe. Dependent atelectasis on the right. Pleural spaces: Significant interval decrease in the pleural fluid on the left with limited residua. Persistent moderate right pleural effusion. Heart: Interval increase in now large pericardial effusion. Measures up to 3.2 cm in thickness with risk for tamponade. Coronary arteries: No significant coronary artery calcifications. Lymph nodes: Mediastinal and hilar lymphadenopathy unchanged. Areas of hypoperfusion in the collapsed left upper lobe versus mass here similar to previous. Liver: The patient's hepatic lesions are redemonstrated not significantly changed but suboptimally demonstrated due to the phase of enhancement. Bones/joints: Lytic lesion T12 again seen. Additional lesion L1. No pathologic fracture. Soft tissues: Unremarkable. IMPRESSION: 1. Interval increase in now large pericardial effusion. This measures up to 3.2 cm in thickness with risk for tamponade. 2. Left chest tube is in place, tip extending toward the apex posteriorly. There is a small 10% pneumothorax currently. 3. Significant interval decrease in the pleural fluid on the left with limited residua. Persistent moderate right pleural effusion. 4. There is now limited aeration of the left lower lobe and lingula. There are persistent areas of dense consolidation here, as well as persistent collapse of the left upper lobe. Dependent atelectasis on the right. 5. Mediastinal and hilar lymphadenopathy unchanged. Areas of hypoperfusion in the collapsed left upper lobe versus mass here similar to previous. 6. No pulmonary embolus. No dissection or aneurysm in the chest.
--- NOTE | 2022-03-25 12:01 | HMH.ITSTN ---
waiting for a new iv for PE protocol , RN will call when IV is established
--- NOTE | 2022-03-25 15:14 | XR_ITS ---
FINAL REPORT CLINICAL HISTORY: PICC line placement COMPARISON: 03/25/2022 FINDINGS: SINGLE-VIEW CHEST The heart size is normal. The mediastinum is normal. New, right PICC line terminates in the mid SVC. Left chest tube is in place. There are persistent right base opacities, may represent atelectasis or pneumonia. There are persistent left lung opacities. There is a small left apical pneumothorax with 12 mm of pleural separation. IMPRESSION: New right PICC line terminates in the mid SVC. Persistent bilateral opacities as above. Small left apical pneumothorax. Reviewed, Interpreted and Dictated by Daquan Olivera III, MD Transcribed by Janey Cuba Authenticated and [facility]
--- NOTE | 2022-03-25 18:24 | PC.NURSE ---
Have notified Dr. Em of CTA results.
--- NOTE | 2022-03-25 18:53 | PC.NURSE ---
No acute changes, tele applied for mx, Dr. Leonardo aware.
--- NOTE | 2022-03-25 20:00 | IR_ITS ---
APPROVED REPORT Patient Location: Inpatient PROCEDURES Emergent pericardiocentesis with placement of temporary pigtail catheter into the pericardial space INDICATION Cardiac tamponade, Malignant pericardial effusion, Informed consent was obtained prior to the procedure. COMPLICATIONS None Estimated Blood Loss: 200 mls TECHNIQUE The thoracic and abdominal area was sterilely prepped and propofol was administered intravenously giving adequate sedation. Patient was monitored with telemetry and continuous oxygen saturation. Needle was inserted under ultrasound guidance into the pericardial space and 200 cc of bloody pericardial fluid was removed. The tract was dilated and a pigtail catheter was placed. The pigtail catheter initially drained but then became clogged with fibrotic debris from the pericardial space. Repeat echocardiogram revealed resolution of the cardiac tamponade with a persistent pericardial effusion. Because had resolved with the emergent pericardiocentesis and the drain was clogged it was removed and the cutaneous area sterilely bandaged. The patient tolerated the procedure well and was hemodynamically stable at the end of the procedure. IMPRESSION Cardiac tamponade secondary to malignant metastasis into the pericardial space Successful pericardiocentesis removing 200 cc of bloody fluid PLAN 1. Recommend patient be transferred to [facility] for pericardial window. This fluid will almost certainly reaccumulate and cause another compressive physiology situation. A pericardial window would be the treatment of choice 2. Also recommend hematology oncology evaluation for possible radiation therapy to debulk the thoracic mass 3. Supportive care Electronically signed by : Hunter Gregg MD 03/26/2022 12:41:09
--- NOTE | 2022-03-25 22:41 | SUR.OPER ---
2109 Dr. armando and echo staff at bedside for pericardiacentesis, patient chest sterile draped and cleaned with cloraprep, dr armando sedated with 300mg propofol throughout the procedure. vitals q3 minutes throughout the procedure see below procedure finished at 2200. patient tolerated well, drain removed by Dr. armando 200cc fluid in drain bag, dressed with 4x4 and tegaderm 2102 134/84 121hr 95% 2114 139/99 hr 109 95% 2117 118/85 121 95 % 2120 117/73 120 91% 2123 123/95 121 90% 2126 132/97 119 92% 2129 137/90 114 92% 2132 133/84 112 92% 2135 175/85 110 93% 2138 129/85 110 93% 2140 117/91 111 94% 2143 134/62 109 95% 2146 136/91 109 95% 0 130/92 109 96% 2152 130/92 109 96% 2155 130/06351 96% 2158 130/86 109 96%
--- NOTE | 2022-03-25 22:54 | PC.NURSE ---
. and nurse still present in room after procedure.
--- NOTE | 2022-03-25 23:06 | PC.NURSE ---
Post procedure 15 L o2 at 95% aox4 and arousable. Middle chest with 4x4 tegaderm c/d/i. Left chest tube intact and to lws.
[2022-03-26] VITALS (9 sets, daily range): BP systolic 108–120; BP diastolic 63–75; PULSE 100–120; RESP 16–22; TEMP 36.8–37; O2SAT 91–98; BMI 29.5
--- NOTE | 2022-03-26 06:00 | XR_ITS ---
PROCEDURE INFORMATION: Exam: XR Chest Exam date and time: 03/26/2022 5:46 AM Age: 46 years old Clinical indication: Condition or disease and device placement; Chest tube; Lung condition and disease; Pneumothorax TECHNIQUE: Imaging protocol: Radiologic exam of the chest. Views: 1 view. COMPARISON: CR XR CHEST PORTABLE PICC PLAC 03/25/2022 3:10 PM FINDINGS: Tubes, catheters and devices: Left-sided pleural tube. Lungs: Opacification of the left lung. Pleural spaces: Left apical pneumothorax all unchanged. Heart/Mediastinum: Unremarkable. No cardiomegaly. Bones/joints: Unremarkable. IMPRESSION: Left-sided pneumothorax with pleural tube. Left lung opacification. Cardiomegaly.
--- NOTE | 2022-03-26 06:19 | PC.NURSE ---
Pt. had a Pericardiocentesis last night by Dr. Gregg. She has a 4x4 with tegaderm to her middle chest. She also has a Left chest tube with 1,000 ML out on my shift. She is up with assist times one and is going to sometime today.
[2022-03-26 07:46] LABS: Lymphocytes # 0.9 K/mm3 (0.7-4.5); Monocytes % 5.6 % (1.7-9.3); Red Cell Distribution Width 15.5 % (11.5-17.5)
[2022-03-26 07:49] LABS: Chloride 98 mmol/L (98-107); Potassium 3.7 mmoL/L (3.5-5.1); Sodium 133 mmol/L (136-145)
[2022-03-26 07:51] LABS: Basophils # 0.1 K/mm3 (0-0.2); Basophils % 0.3 % (0.1-2.0); Eosinophils # 0.7 K/mm3 (0.0-0.4); Eosinophils % 4.3 % (0.1-12.0); Hematocrit 39.6 % (37.0-47.0); Mean Corpuscular Hemoglobin 27.5 pg (27.0-31.2); Mean Corpuscular Volume 88.6 fl (81-99); Mean Platelet Volume 8.8 fl (7.4-10.4); Neutrophils # 14.8 K/mm3 (1.8-7.8); Neutrophils % 84.8 % (37.0-80.0); Platelet Count 260 K/mm3 (142-424); Red Blood Count 4.47 M/mm3 (4.20-5.40); White Blood Count 17.4 K/mm3 (4.8-10.8)
[2022-03-26 07:52] LABS: Anion Gap 8.7 mEq/L (5-15); Blood Urea Nitrogen 13 mg/dl (7-17); Calcium 7.4 mg/dl (8.4-10.2); Carbon Dioxide 30 mmol/L (22.0-30.0); Creatinine Clearance Estimated 191 mL/min (50-200); Estimated Glomerular Filt Rate 173 ml/min (>60); GFR (African American) 209 ML/MIN (>60); Glucose 355 mg/dl (74-100)
[2022-03-26 07:55] LABS: Hemoglobin 12.3 g/dL (12.2-16.2)
[2022-03-26 07:57] LABS: MANUAL DIFFERENTIAL MANUAL DIFFERENTIAL (MANUAL DIFF)
--- NOTE | 2022-03-26 08:03 | EXP.ACUTE.PN ---
Subjective *Date: 03/26/22 *Time: 08:03 Interval history: Patient had cardiac tamponade yesterday afternoon/evening. Dr. Gregg was consulted and aspirated 200 mL's from the pericardial sac and made arrangements to transfer patient to for further treatment with CT surgery. She feels better today, has less dyspnea. Medical Exam Vital signs and Labs for Last 24 Hours: Vital Signs Temp Pulse Pulse Resp BP Pulse Ox 03/26/22 04:00 98.4 F 110 H 20 108/63 L 95 03/26/22 02:58 98.5 F 115 H 19 118/67 03/26/22 02:00 116 H 19 117/66 03/26/22 01:00 98.6 F 111 H 16 120/68 94 L 03/26/22 00:00 98.4 F 113 H 16 117/75 95 03/25/22 23:30 98.7 F 116 H 21 121/85 95 03/25/22 19:07 120 H 03/25/22 23:00 111 H 18 123/81 95 03/25/22 20:00 95 03/25/22 22:30 111 H 18 128/86 97 03/25/22 22:15 110 H 18 123/85 97 03/25/22 21:15 107 H 18 132/84 96 03/25/22 22:10 107 H 18 121/85 97 03/25/22 22:05 109 H 21 135/85 96 03/25/22 22:45 112 H 18 125/89 96 03/25/22 22:00 109 H 18 136/87 97 03/25/22 19:57 97.5 F L 117 H 22 115/80 95 03/25/22 15:32 97.5 F L 115 H 18 121/84 94 L Intake and Output 03/25/22 03/26/22 03/26/22 23:59 07:59 15:59 Intake Total 240 / 940 100 / 100 Output Total 1550 / 1750 1000 / 1000 Balance -1310 / -810 -900 / -900 Intake: Intake, Oral Amount 240 / 840 Intake, Total IV Amount 100 / 100 Piperacillin/Tazo 4.5 gm In 0.9 100 / 100 % Sodium Chloride 100 ml @ 200 mls/hr IV Q6H [facility] Rx#:[id number] Output: Output, Urine Amount 300 / 500 Output, Chest Tube Drainage 1250 / 1250 1000 / 1000 Amount Left 1250 / 1250 1000 / 1000 Other: Number of Unmeasured Voids 1 1 Weight 150 lb 5 oz Patient Weight 03/26/22 23:59 Weight 150 lb 5 oz Laboratory Results - last 24 hr 03/25/22 07:25: WBC 21.8 H*, RBC 5.14, Hgb 14.5, Hct 45.8, MCV 89.0, MCH 28.2, MCHC 31.6 L, RDW 15.5, Plt Count 325, MPV 8.9, Neut % (Auto) 82.0 H, Lymph % (Auto) 7.8 L, [place] % (Auto) 6.5, Eos % (Auto) 3.3, Baso % (Auto) 0.3, Neut # (Auto) 17.9 H, Lymph # (Auto) 1.7, [place] # (Auto) 1.4 H, Eos # (Auto) 0.7 H, Baso # (Auto) 0.1, Total Counted 100, Neutrophils % (Manual) 87 H, Lymphocytes % (Manual) 5 L, Monocytes % (Manual) 4, Eosinophils % (Manual) 4 H, Platelet Estimate Normal, RBC Morphology Normal 03/25/22 07:25: Sodium 130 L, Potassium 5.9 H, Chloride 96 L, Carbon Dioxide 22, Anion Gap 17.9 H, BUN 17, Creatinine 0.30 L, Estimated Creat Clear 245, Estimated GFR 241, Est GFR ( Amer) 291, Glucose 340 H, Calcium 8.4 03/26/22 06:58: WBC 17.4 H, RBC 4.47, Hgb 12.3 D, Hct 39.6, MCV 88.6, MCH 27.5, MCHC 31.0 L, RDW 15.5, Plt Count 260, MPV 8.8, Neut % (Auto) 84.8 H, Lymph % (Auto) 5.0 L, [place] % (Auto) 5.6, Eos % (Auto) 4.3, Baso % (Auto) 0.3, Neut # (Auto) 14.8 H, Lymph # (Auto) 0.9, [place] # (Auto) 1.0, Eos # (Auto) 0.7 H, Baso # (Auto) 0.1 03/26/22 06:58: Sodium 133 L, Potassium 3.7 D, Chloride 98, Carbon Dioxide 30, Anion Gap 8.7, BUN 13, Creatinine 0.40 L D, Estimated Creat Clear 191, Estimated GFR 173, Est GFR ( Amer) 209 D, Glucose 355 H, Calcium 7.4 L I & O for Labs for Last 24 Hours: Intake & Output 03/23/22 03/24/22 03/25/22 03/26/22 23:59 23:59 23:59 23:59 Intake Total 240 / 240 940 / 940 100 / 100 Output Total 500 / 500 1750 / 1750 1000 / 1000 Balance -260 / -260 -810 / -810 -900 / -900 Weight 120 lb 144 lb 5 oz 150 lb 5 oz Constitutional: Present no acute distress Comment:: Appears not to feel well Extremities: Absent edema Assessment and Plan *Assessment and plan (1) Pneumothorax on left: Status: Acute Category: Medical Code(s): J93.9 - Pneumothorax, unspecified (2) Malignant pleural effusion: Status: Acute Category: Medical Code(s): J91.0 - Malignant pleural effusion (3) Primary adenocarcinoma of lung: Status:
--- NOTE | 2022-03-26 08:33 | EXP.SURG.PN ---
Subjective Patient reports: no new complaints Exam Data for Last 24 hours Vital signs and Labs for Last 24 Hours: Temp Pulse Resp BP Pulse Ox FiO2 98.4 F 107 H 18 108/68 L 94 L 15 03/26/22 08:00 03/26/22 08:00 03/26/22 08:00 03/26/22 08:00 03/26/22 08:00 03/25/22 08:00 Laboratory Results - last 24 hr 03/25/22 07:25: Total Counted 100, Neutrophils % (Manual) 87 H, Lymphocytes % (Manual) 5 L, Monocytes % (Manual) 4, Eosinophils % (Manual) 4 H, Platelet Estimate Normal, RBC Morphology Normal 03/25/22 07:25: Sodium 130 L, Potassium 5.9 H, Chloride 96 L, Carbon Dioxide 22, Anion Gap 17.9 H, BUN 17, Creatinine 0.30 L, Estimated Creat Clear 245, Estimated GFR 241, Est GFR ( Amer) 291, Glucose 340 H, Calcium 8.4 03/26/22 06:58: WBC 17.4 H, RBC 4.47, Hgb 12.3 D, Hct 39.6, MCV 88.6, MCH 27.5, MCHC 31.0 L, RDW 15.5, Plt Count 260, MPV 8.8, Neut % (Auto) 84.8 H, Lymph % (Auto) 5.0 L, [place] % (Auto) 5.6, Eos % (Auto) 4.3, Baso % (Auto) 0.3, Neut # (Auto) 14.8 H, Lymph # (Auto) 0.9, [place] # (Auto) 1.0, Eos # (Auto) 0.7 H, Baso # (Auto) 0.1 03/26/22 06:58: Sodium 133 L, Potassium 3.7 D, Chloride 98, Carbon Dioxide 30, Anion Gap 8.7, BUN 13, Creatinine 0.40 L D, Estimated Creat Clear 191, Estimated GFR 173, Est GFR ( Amer) 209 D, Glucose 355 H, Calcium 7.4 L I & O for Last 24 hours: Intake & Output 03/23/22 03/24/22 03/25/22 03/26/22 11:59 11:59 11:59 11:59 Intake Total 700 / 700 700 / 700 Output Total 700 / 700 2550 / 2550 Balance 0 / 0 -1850 / -1850 Weight 144 lb 5 oz 150 lb 5 oz Constitutional Constitutional: no acute distress *Routine Respiratory Exam Comments: Chest tube continues to show accumulation of effusive fluid. No air leak appreciable. Progress Note: A&P Assessment and plan (1) Pneumothorax on left: Status: Acute Assessment and plan: Persistent left apical pneumothorax. No air leak appreciable. Chest tube to remain in position for transfer to for further evaluation and management (transfer plans underway secondary to pericardial effusion and need for cardiothoracic surgical intervention) (2) Malignant pleural effusion: Status: Acute (3) Primary adenocarcinoma of lung: Status: Acute (4) Brain metastases: Status: Acute (5) Bone metastases: Status: Acute (6) Chronic cough: Status: Acute (7) Liver metastases: Status: Acute (8) Mediastinal lymphadenopathy: Status: Acute (9) Diabetes mellitus, type 2: Status: Acute (10) Thrush: Status: Acute (11) Cardiac tamponade: Status: Acute
[2022-03-26 09:42] LABS: Eosinophils % 2 % (0-3); Lymphocytes % 9 % (10-50); Monocytes % 3 % (2-9); Neutrophils % 86 % (42-76); Platelet Estimate Normal; RBC Morphology Normal; Total Cells Counted 100
--- NOTE | 2022-03-26 10:05 | EXP.PULM.PN ---
Subjective *Date: 03/26/22 *Time: 13:02 Interval history: Admits improvement in her respiratory symptoms. Denies any new complaints Pulmonology Exam Inpatient Vital signs and Labs for Last 24 Hours: Temp Pulse Resp BP Pulse Ox FiO2 98.4 F 107 H 18 108/68 L 94 L 15 03/26/22 08:00 03/26/22 08:00 03/26/22 08:00 03/26/22 08:00 03/26/22 08:00 03/25/22 08:00 Laboratory Results - last 24 hr 03/26/22 06:58: WBC 17.4 H, RBC 4.47, Hgb 12.3 D, Hct 39.6, MCV 88.6, MCH 27.5, MCHC 31.0 L, RDW 15.5, Plt Count 260, MPV 8.8, Neut % (Auto) 84.8 H, Lymph % (Auto) 5.0 L, [place] % (Auto) 5.6, Eos % (Auto) 4.3, Baso % (Auto) 0.3, Neut # (Auto) 14.8 H, Lymph # (Auto) 0.9, [place] # (Auto) 1.0, Eos # (Auto) 0.7 H, Baso # (Auto) 0.1, Total Counted 100, Neutrophils % (Manual) 86 H, Lymphocytes % (Manual) 9 L, Monocytes % (Manual) 3, Eosinophils % (Manual) 2, Platelet Estimate Normal, RBC Morphology Normal 03/26/22 06:58: Sodium 133 L, Potassium 3.7 D, Chloride 98, Carbon Dioxide 30, Anion Gap 8.7, BUN 13, Creatinine 0.40 L D, Estimated Creat Clear 191, Estimated GFR 173, Est GFR ( Amer) 209 D, Glucose 355 H, Calcium 7.4 L I & O for Labs for Last 24 Hours: Intake & Output 03/23/22 03/24/22 03/25/22 03/26/22 23:59 23:59 23:59 23:59 Intake Total 240 / 240 940 / 940 220 / 220 Output Total 500 / 500 1750 / 1750 1000 / 1000 Balance -260 / -260 -810 / -810 -780 / -780 Weight 120 lb 144 lb 5 oz 150 lb 5 oz Constitutional: Present mild distress Head: Present normocephalic and atraumatic ENT: Present normal exam, normal oropharynx and mucous membranes moist Neck: Present normal inspection and full ROM Respiratory: Present decreased breath sounds, respiratory distress and able to speak in complete sentences; Absent wheezes, crackles or diminished air movement Comment:: Decreased breath sounds left lower lung garcia Cardiac: Present S1/S2, Tachycardia and radial pulses present GI: Present soft and distention; Absent tenderness or guarding Rectal (female): Present deferred (female): Present deferred Skin: Present intact; Absent cyanosis or jaundice Neuro: Present alert, awake and oriented x 3 Extremities: Present normal inspection; Absent clubbing or cyanosis Psychiatric: Present normal affect and cooperative Assessment and Plan *Assessment and plan (1) Pneumothorax on left: Status: Acute Category: Medical Code(s): J93.9 - Pneumothorax, unspecified (2) Malignant pleural effusion: Status: Acute Category: Medical Code(s): J91.0 - Malignant pleural effusion (3) Pneumonia: Status: Acute Category: Medical Code(s): J18.9 - Pneumonia, unspecified organism Plan #Malignant left pleural effusion: #Iatrogenic pneumothorax: #Pneumonia: #Acute hypoxic respiratory failure Recent diagnosis of stage IV adenocarcinoma lung with malignant pleural effusion. Presented for outpatient thoracentesis experienced iatrogenic pneumothorax needing surgical chest tube placement appreciate surgery help. Status post chest tube placement - Surgery following CTA reviewed, no pulmonary embolism. Noted to have what appeared to be a large left upper lobe mass small apical Left pneumothorax along with dense consolidation/airspace disease in the left lower lobe and LLL atelectasis. Small Rt effusion also noted. CTA also showed large percardial effusion s/p pericardiocentesis Plan: - -Continue Zosyn IV TID for pneumonia, follow sputum cultures with induction. Improving Leucocytosis -Continue oxygen supplementation to maintain O2 saturation goal of 90% and above.-Attempted to drop to 4L with saturations dropped to 87%. Increased to 8 L. -DuoNebs every 6 hours on as-needed basis -Percocet every 6 hours for pain managemen Thank you for involving pulmonary in this patient care. We will continue to follow.
--- NOTE | 2022-03-26 11:10 | EXP.CARD.CON ---
History of Present Illness History of Present Illness Consult date: 03/26/22 Requesting physician: Yuniel Leonardo Consult reason: shortness of breath Chief complaint: sob, pericardial effusion History of present illness: This is a 46-year-old white female who was admitted to the hospital for pneumothorax following a left thoracentesis. The patient has metastatic pulmonary adenocarcinoma with metastasis to the brain, liver and spine. The patient underwent left thoracentesis on 03/15/2022 with removal of 1620 mL of blood-tinged fluid. She became short of breath again and chest x-ray on 03/24/2022 showed accumulation of fluid again so she had another thoracentesis with removal of 2390 mL of blood-tinged fluid. After the procedure the patient experienced a pneumothorax and was admitted to the hospital with chest tube placement. After she was admitted she had a CT of the chest that showed a large pericardial effusion that was worsening and measures 3.2 cm which was concerning for cardiac tamponade. The patient was having progressively worsening shortness of breath. She denies any chest pain or pressure. She states that she was essentially short of breath all the time. She states that she had a very small amount of edema in her legs bilaterally at times. She denies any fever, chills, nausea, vomiting, diarrhea, PND or orthopnea. She states that she is extremely fatigued and has no energy whatsoever. Through the night last night Dr. Gregg did perform a pericardiocentesis and she had 200 mL of blood-tinged fluid drained from the pericardium. The line was removed as it kept clotting off so he was unable to keep it in place for continuous draining. The patient states that her shortness of breath has improved significantly since having the pericardiocentesis. Her chest tube is still in place on the left. [facility] Disclaimer: The information contained in this section may have been updated after the patient was seen, as this information can be updated by other users. Medical History (Updated 03/26/22 @ 11:19 by Niya Dooley APRN) Abnormal electrocardiography Anxiety and depression Blurry vision, bilateral Bone metastases Brain metastases Cardiac tamponade Chronic cough Diabetes mellitus, type 2 Family history of heart disease GERD (gastroesophageal reflux disease) Hilar lymphadenopathy History of COVID-19 History of diverticulitis History of gastroesophageal reflux (GERD) Hyperlipidemia Liver metastases Lung cancer Malignant pleural effusion Mediastinal lymphadenopathy Migraine Palpitations Pericardial effusion Pleural effusion Pneumonia Primary adenocarcinoma of lung Sinus tachycardia SOB (shortness of breath) Surgical History (Updated 03/25/22 @ 08:35 by SAMMY Castellon) History of thoracentesis Family History Diabetes Lung cancer Mother Social History Smoking Status: Former smoker alcohol intake: never substance use type: denies use current occupational status: employed Travel in the last 8 weeks: None Review of Systems Review of Systems Review of systems:: pertinent systems reviewed and negative unless documented below Constitutional Constitutional: Reports system reviewed and no additional complaints, except as documented, Reports fatigue, Reports lethargy and Reports weakness Eyes Eyes: Reports system reviewed and no additional complaints, except as documented ENT Ears, Nose, Mouth, and Throat: Reports system reviewed and no additional complaints, except as documented and Reports vertigo *Cardiovascular Cardiovascular: Reports system reviewed and no additional complaints, except as documented, Denies chest pain, Reports dyspnea and Reports dyspnea on exertion *Respiratory Respiratory: Reports system reviewed and no additional complaints, except as documented, Reports cough, Reports dyspnea and Reports
--- NOTE | 2022-03-26 14:58 | PC.NURSE ---
report called to alvina at [facility], still waiting on [facility]
--- NOTE | 2022-03-29 22:22 | EXP.DC.SUM ---
General Admission date:: 03/24/22 Discharge date: 03/26/22 HPI HPI HPI: Ms. West is a 46-year-old female with a newly diagnosed pulmonary adenocarcinoma which has metastasized to the brain, liver, and spine. She underwent a left thoracentesis on 03/15/2022 with removal of 1620 mL of blood-tinged fluid. She began having shortness of breath again on 03/24/2022 and chest x-ray showed reaccumulation of fluid. She had another thoracentesis with 2390 mL of blood-tinged fluid removed. After the procedure, she experienced a pneumothorax and was admitted and a chest tube was placed. Hospital Course Hospital Course Hospital Course: The patient's initial chest x-ray showed a moderate left pneumothorax. Repeat chest x-ray after chest tube placement showed a moderate but larger left pneumothorax with approximately 27 mm of pleural separation. There was also a small pleural effusion. A repeat chest x-ray the next day then showed interval near complete resolution of the left-sided pneumothorax. There was development of diffuse airspace disease and consolidation throughout the left hemithorax. There was a left pleural effusion and cardiomegaly. Pulmonology was consulted. He reviewed her chest x-ray, which showed a possible endobronchial lesion. She had also developed leukocytosis and was hypoxic. He initiated Zosyn IV 3 times daily for pneumonia and wanted a CT PE protocol. A PICC line was placed for continued IV antibiotics. Her CTA showed no PE, but it did show what appeared to be a large left upper lobe mass and a small apical left pneumothorax along with dense consolidation/airspace disease in the left lower lobe and left lower lobe atelectasis. The CTA also showed a large pericardial effusion. The patient then developed cardiac tamponade and Dr. Gregg was consulted and aspirated 200 mL from the pericardial sac and made arrangements for the patient to be transferred to for further treatment with CT surgery. She did have less dyspnea after this procedure. Dr. Gregg spoke with Dr. Scales who agreed to accept the patient on transfer to see CT surgery [facility]. She was transferred for further evaluation and treatment. Exam Data for Last 24 hours Vital signs and Labs for Last 24 Hours: Temp Pulse Resp BP Pulse Ox FiO2 98.2 F 120 H 22 118/74 98 15 03/26/22 15:37 03/26/22 15:37 03/26/22 15:37 03/26/22 15:37 03/26/22 15:37 03/25/22 08:00 I & O for Last 24 hours: Intake & Output 03/27/22 03/28/22 03/29/22 03/30/22 11:59 11:59 11:59 11:59 Intake Total 360 / 360 Balance 360 / 360 Narrative: Constitutional Constitutional: no acute distress (Does not appear to feel well) *Routine HEENT Exam Head: Present normocephalic and atraumatic Eye: Present EOMI and PERRL ENT: Present mucous membranes dry *Routine Neck Exam Neck: Present supple and full ROM *Routine Respiratory Exam Respiratory: Present decreased breath sounds (on the left side) *Routine Cardiovascular Exam Cardiovascular: Present RRR *Routine Abdominal Exam Abdominal: Present soft and normoactive bowel sounds; Absent tenderness *Routine Rectal Exam Rectal:: deferred *Routine Genitalia Exam Genitalia:: deferred *Routine Extremities Exam Extremities: Absent cyanosis, clubbing or edema *Routine Skin Exam Skin: Present intact; Absent erythema *Routine Neurological Exam Neurological: Present alert and oriented X3 DS: Diagnosis Discharge Diagnosis (1) Pneumothorax on left: Status: Acute (2) Malignant pleural effusion: Status: Acute (3) Pneumonia: Status: Acute Meds Home Medications and Allergies Home Medications Medication Instructions Recorded Confirmed Type empagliflozin 10 mg tablet 10 mg PO DAILY Diabetes 03/15/22 03/24/22 History (Jardiance) pantoprazole 40 mg tablet,delayed 40 mg PO BID GERD 03/25/22 03/25/22 History release New Prescriptions to Start Prescriptions: A
== END 2022-03-26 16:00 | disposition short-term general hospital (02) | DRG 199 ==
LOC: 2ND 16:49
PROVIDERS: Internal Medicine; Admitting Provider Family Medicine; PCP Family Medicine; Visit Provider Family Medicine
PROC: 0W9D30Z Drainage of Pericardial Cavity with Drainage Device, Percutaneous Approach (ICD-10-PCS; principal; 2022-03-25 21:00)
DX: J95.811 Postprocedural pneumothorax (principal); J18.9 Pneumonia, unspecified organism; J96.01 Acute respiratory failure with hypoxia; B37.0 Candidal stomatitis; C34.92 Malignant neoplasm of unspecified part of left bronchus or lung; C78.7 Secondary malignant neoplasm of liver and intrahepatic bile duct; C79.31 Secondary malignant neoplasm of brain; J91.0 Malignant pleural effusion; C79.51 Secondary malignant neoplasm of bone; I31.4 Cardiac tamponade; C79.89 Secondary malignant neoplasm of other specified sites; C34.90 Malignant neoplasm of unspecified part of unspecified bronchus or lung; E11.9 Type 2 diabetes mellitus without complications; Z79.84 Long term (current) use of oral hypoglycemic drugs
CPT/HCPCS: 32555; 36569; 32551; G0379; 33010; 33017; 36410; 36415; 71045; 71046; 71275; 80048; 85007; 85025; 93308; 94760; 99152; 99153; C1725; C1751; C9803; J2405; J2543; J2704; Q9967; U0003; U0005

== ENCOUNTER 2022-06-16 14:57 | Outpatient (CLI) | payer OTHER, SELFPAY ==
[2022-06-16 15:05] VITALS: BMI 26.2
[2022-06-16 15:30] VITALS: BP 128/80; PULSE 98; RESP 18; O2SAT 95
[2022-06-16 15:38] LABS: Basophils # 0.1 K/mm3 (0-0.2); Basophils % 0.7 % (0.1-2.0); Eosinophils % 0.5 % (0.1-12.0); Hematocrit 37.6 % (37.0-47.0); Hemoglobin 12.2 g/dL (12.2-16.2); Lymphocytes # 1.4 K/mm3 (0.7-4.5); Lymphocytes % 18.3 % (10-50); Mean Corpuscular HGB Conc 32.4 g/dL (31.8-35.4); Mean Corpuscular Hemoglobin 28.6 pg (27.0-31.2); Mean Corpuscular Volume 88.3 fl (81-99); Mean Platelet Volume 9.6 fl (7.4-10.4); Monocytes # 0.4 K/mm3 (0.1-1.0); Monocytes % 5.7 % (1.7-9.3); Neutrophils # 5.5 K/mm3 (1.8-7.8); Neutrophils % 74.7 % (37.0-80.0); Platelet Count 225 K/mm3 (142-424); Red Blood Count 4.26 M/mm3 (4.20-5.40); Red Cell Distribution Width 16.7 % (11.5-17.5); White Blood Count 7.4 K/mm3 (4.8-10.8)
[2022-06-16 15:48] LABS: Chloride 96 mmol/L (98-107); Sodium 135 mmol/L (136-145)
[2022-06-16 15:51] LABS: Alanine Aminotransferase 14 U/L (12-78); Albumin Level 4.7 g/dl (3.5-5.0); Albumin/Globulin Ratio 1.4 (1.1-1.8); Alkaline Phosphatase 71 U/L (38-126); Aspartate Amino Transferase 24 U/L (14-36); Bilirubin,Total 0.5 mg/dl (0.2-1.3); Blood Urea Nitrogen 10 mg/dl (7-17); Carbon Dioxide 29 mmol/L (22.0-30.0); Creatinine Clearance Estimated 135 mL/min (50-200); Estimated Glomerular Filt Rate 133 ml/min (>60); GFR (African American) 161 ML/MIN (>60); Globulin 3.4 g/dL (1.3-3.2); Total Protein,Serum 8.1 g/dl (6.3-8.2)
[2022-06-16 15:52] LABS: Amylase 68 U/L (30-110); Calcium 8.8 mg/dl (8.4-10.2); Glucose 82 mg/dl (74-100); Lipase 38 U/L (23-300)
[2022-06-16 16:31] VITALS: BP 132/86; PULSE 87; RESP 18; O2SAT 97
--- NOTE | 2022-06-16 16:41 | PC.NURSE ---
report received from Brenda Springer RN at this time. pt receiving ivf infusion, pt stable, no c/o voiced or noted.
[2022-06-16 17:00] VITALS: BP 129/82; PULSE 88; RESP 18; O2SAT 97
[2022-06-16 17:40] VITALS: BP 130/74; PULSE 90; RESP 18; O2SAT 97
== END 2022-06-16 17:50 | disposition home or self-care (01) ==
LOC: INF 15:00
PROVIDERS: PCP Family Medicine; Visit Provider Family Medicine
DX: R10.9 Unspecified abdominal pain (principal); R11.2 Nausea with vomiting, unspecified
CPT/HCPCS: 80053; 82150; 83690; 85025; 96360; 96361; 96375; J2405

== ENCOUNTER → 2022-12-23 13:48 | Outpatient (POV) | payer OTHER, SELFPAY ==
--- NOTE | 2022-12-23 14:04 | EXP.PAIN.OV ---
HPI Data of Consult Patient: new to practice Consult date: 12/23/22 Requesting Physician: Kay Power APRN Primary Care Provider: Yuniel Leonardo MD Consult Narrative Reason for consult: Cancer pain, chronic pain syndrome History of present illness: Ms. West is a 47 year old female who presents today as a new patient. She is a referral from [facility]'s office. Today she rates her pain a 7 out of 10. Patient does states she has pain throughout multiple areas of her body including her neck, back, hands, shoulders and ankles. Patient does describes this as a constant achy sensation with stiffness that is worse in the mornings. Patient was diagnosed with cancer from an extensive lung mass with mets to the pleura, pericardial sac, liver bone and the brain. She she is clinically staged at [id number]. Patient is on oxycodone 20 mg 4 times a day and OxyContin 30 mg twice a day from an outside provider. Patient denies any side effects from this medication. She does state that she feels like she is on enough medications and would like to come down off of these. Patient states prior to this medication she had tried oral medication such as Tylenol and ibuprofen along with heat and ice and topicals with minimal relief. Patient is interested in any options we may be able to provide. Patient does state that the constant pain does affect her ability perform activities of daily living. Her Saurabh is [phone]. Its been reviewed and appropriate. CC: Kay Power APRN [facility] Disclaimer: The information contained in this section may have been updated after the patient was seen, as this information can be updated by other users. Medical History (Updated 12/23/22 @ 14:37 by Kay Power APRN) Abnormal electrocardiography Anxiety and depression Blurry vision, bilateral Bone metastases Brain metastases Cardiac tamponade Chronic cough Diabetes mellitus, type 2 Family history of heart disease GERD (gastroesophageal reflux disease) Hilar lymphadenopathy History of chemotherapy History of COVID-19 History of diverticulitis History of gastroesophageal reflux (GERD) Hx of radiation therapy Hyperlipidemia Liver metastases Lung cancer Malignant pleural effusion Mediastinal lymphadenopathy Migraine Palpitations Pericardial effusion Pleural effusion Pneumonia Primary adenocarcinoma of lung Sinus tachycardia SOB (shortness of breath) Surgical History History of thoracentesis Family History Diabetes Lung cancer Mother Social History (Updated 12/23/22 @ 14:20 by Britta Naranjo RN) Smoking Status: Former smoker alcohol intake: never substance use type: denies use current occupational status: employed Travel in the last 8 weeks: None Review of Systems Review of Systems Review of systems:: pertinent systems reviewed and negative unless documented below Review of systems (narrative): Review of Systems: General: No recent weight changes, no fever, no sleep disturbances Respiratory: No cough, no shortness of air, no recurring pulmonary infections Cardiovascular/peripheral vascular: No chest pain, no palpitations, no edema, no shortness of breath Gastrointestinal: No new onset incontinence, normal bowel movements reported Genitourinary: No new onset incontinence Musculoskeletal: Neck pain, back pain, bilateral hands, shoulder, ankle pain Psychiatric: [Normal mood/affect] Neurological: [Denies weakness in extremities], [denies balance issues] Meds Home Medications and Allergies Home Medications Medication Instructions Recorded Confirmed Type empagliflozin 10 mg tablet 10 mg PO DAILY Diabetes 03/15/22 12/23/22 History (Jardiance) pantoprazole 40 mg tablet,delayed 40 mg PO BID GERD 03/25/22 12/23/22 History release fluticasone propionate 50 1 spray intranasal DAILY ALLERGIES 12/23/22 12/23/22 History
[2022-12-23 14:19] VITALS: BP 140/88; PULSE 94; RESP 18; O2SAT 99; BMI 24.6
== END ==
PROVIDERS: PCP Family Medicine; Visit Provider Nurse Practitioner Family
DX: C78.7 Secondary malignant neoplasm of liver and intrahepatic bile duct (principal); C79.31 Secondary malignant neoplasm of brain; C79.51 Secondary malignant neoplasm of bone; G89.4 Chronic pain syndrome; C34.90 Malignant neoplasm of unspecified part of unspecified bronchus or lung
CPT/HCPCS: 99202; G0463

== ENCOUNTER 2023-08-08 12:51 | Outpatient (CLI) | payer OTHER, SELFPAY ==
[2023-08-08 12:59] LABS: Adenovirus F 40/41, stool Not Detected (NotDetected); Astrovirus Not Detected (NotDetected); Campylobacter Not Detected (NotDetected); Cryptosporidium Not Detected (NotDetected); Cyclospora Cayetanesis Not Detected (NotDetected); Entamoeba histolytica Not Detected (NotDetected); Enteroaggregative E coli Not Detected (NotDetected); Enteropathogenic E coli Not Detected (NotDetected); Enterotoxigenic E coli Not Detected (NotDetected); Giardia lamblia Not Detected (NotDetected); Norovirus Not Detected (NotDetected); Plesimonas Shigalloides, PCR Not Detected (NotDetected); Rotavirus A Not Detected (NotDetected); Salmonella, PCR Not Detected (NotDetected); Sapovirus Not Detected (NotDetected); Shiga-like toxin E coli Not Detected (NotDetected); Shigella Enterovasive E coli Not Detected (NotDetected); Vibrio Cholerae Not Detected (NotDetected); Vibrio, PCR Not Detected (NotDetected); Yersinia Entercolitica, PCR Not Detected (NotDetected)
[2023-08-08 15:59] LABS: Clostridium Difficile A/B, PCR Detected (NotDetected)
== END 2023-08-08 23:59 | disposition home or self-care (01) ==
LOC: LAB.DROPOF 12:52
PROVIDERS: PCP Family Medicine; Visit Provider Family Medicine
DX: R19.7 Diarrhea, unspecified (principal); A04.72 Enterocolitis due to Clostridium difficile, not specified as recurrent
CPT/HCPCS: 87507

== ENCOUNTER 2024-03-06 12:30 | Outpatient (CLI) | payer OTHER, SELFPAY ==
--- NOTE | 2024-03-06 12:34 | XR_ITS ---
FINAL REPORT CLINICAL HISTORY: PAIN..metastatic ca FINDINGS: Left shoulder Three views were obtained. There is no fracture or dislocation. There is a lytic destructive lesion in the proximal humeral diaphysis measuring 5.4 cm in length. There is cortical distress banks medially consistent with neoplastic involvement, may represent metastatic disease. There are mild degenerative changes of the shoulders. IMPRESSION: Lesion in the proximal humeral diaphysis consistent with neoplastic involvement, may represent metastatic disease. Reviewed, Interpreted and Dictated by Daquan Olivera III, MD Transcribed by Janey Cuba Authenticated and [facility]
== END 2024-03-06 23:59 | disposition home or self-care (01) ==
LOC: RAD 12:31
PROVIDERS: PCP Family Medicine; Visit Provider Family Medicine
DX: M25.512 Pain in left shoulder (principal)
CPT/HCPCS: 73030